=== PATIENT | male | born 1965 | race Two or more races ===

== ENCOUNTER 2022-02-10 00:41 | Emergency (ER) | payer MEDICAID ==
[~2022-02-10] VITALS: Ht 172.7 cm; Wt 94.0 kg
[2022-02-10] MEDS ORDERED: HYDROmorphone HCL 2 MG/ML VL/or syr IV ONE (03:15)
[2022-02-10] MEDS ORDERED: ONDANSETRON HCL 4 MG/2 ML VIAL IV ONE (03:15)
[2022-02-10] MEDS ORDERED: SODIUM CHLORIDE 0.9% 1,000 ML IV ONE (03:15)
[2022-02-10 03:47] LABS: Basophils # (auto) 0.1 10 ^3/uL (0-0.2); Basophils % (auto) 0.4 % (0.0-2.0); Eosinophils # (auto) 0 10 ^3/uL (0-0.8); Eosinophils % (auto) 0.2 % (0.0-7.0); Hematocrit 48.9 % (41.0-53.0); Hemoglobin 16.2 g/dL (13.5-17.5); Lymphocytes # (auto) 1.1 10 ^3/uL (0.4-5.4); Lymphocytes % (auto) 6.7 % (10.0-50.0); Mean Corpuscular Hemoglobin 29.5 pg (28.0-32.0); Mean Corpuscular Hgb Conc. 33.2 g/dL (32.0-36.0); Mean Corpuscular Volume 88.9 fL (80.0-100.0); Monocytes # (auto) 0.8 10 ^3/uL (0-1.3); Monocytes % (auto) 4.8 % (0.0-12.0); Neutrophils # (auto) 14.8 10 ^3/uL (1.6-8.6); Neutrophils % (auto) 87.9 % (37.0-80.0); Red Blood Cells 5.51 10^6/uL (4.5-5.90); Red Cell Distribution Width 13.2 % (11.8-14.3); White Blood Cell 16.9 10^3/uL (4.4-10.8)
[2022-02-10 04:09] LABS: Potassium 4.2 mmol/L (3.5-5.1)
[2022-02-10 04:18] LABS: Albumin 3.9 g/dL (3.4-5.0); BUN/Creatinine Ratio 12.2; Bilirubin, Total 0.2 mg/dL (0.2-1.0); Calcium 8.8 mg/dL (8.5-10.1); Total Protein 7.4 g/dL (6.4-8.2)
[2022-02-10] MEDS ORDERED: METR500T PO (05:45)
[2022-02-10] MEDS ORDERED: CIPR-173 PO (05:45)
[2022-02-10] MEDS ORDERED: metroNIDAZOLE 500MG/100ML 100 ML IV ONE (05:45)
[2022-02-10] MEDS ORDERED: PERCOT PO (05:45)
[2022-02-10] MEDS ORDERED: ONDA-144 PO (05:45)
[2022-02-10 06:40] VITALS: BP 142/78
== END 2022-02-10 06:44 | disposition home or self-care (01) ==
LOC: ER 00:44
DX: K80.20 Calculus of gallbladder without cholecystitis without obstruction (principal); K57.92 Diverticulitis of intestine, part unspecified, without perforation or abscess without bleeding
CPT/HCPCS: 36415; 74176; 80053; 83690; 84484; 85025; 93005; 96361; 96365; 96375; 99285; J1170; J2405; J3490; J7030